=== PATIENT | male | born 1975 | race Caucasian/White ===

== ENCOUNTER → 2017-10-25 15:07 | Outpatient (CLI) | payer OTHER, SELFPAY ==
[2017-10-25 18:23] LABS: Anion Gap 10 (5-15); BUN 15 mg/dL (7-18); BUN/Creat Ratio 16.2 RATIO (10-20); Chloride 105 mmol/L (98-107); Cholesterol 169 mg/dL (200); Creatinine, Serum 0.93 mg/dL (0.70-1.30); EST Glomerular Filtration Rate 95 mL/min (>60); Est Glom Filt Rate - Afr Amer 115 mL/min (>60); Glucose 86 mg/dL (74-106); High Density Lipoprotein 41 mg/dL; Potassium 3.8 mmol/L (3.5-5.1); Sodium Level 139 mmol/L (136-145); Thyroid Stim Hormone (TSH) 1.23 uIU/mL (0.358-3.74); Triglycerides 217 mg/dL; Very Low Density Lipoprotein 43 mg/dL (5-40)
== END ==
PROVIDERS: Family Provider Family Medicine; PCP Family Medicine; Visit Provider Family Medicine
DX: Z00.00 Encounter for general adult medical examination without abnormal findings (principal)
CPT/HCPCS: 36415; 80048; 80061; 84443

== ENCOUNTER → 2020-06-22 10:04 | Outpatient (CLI) | payer OTHER, SELFPAY ==
--- NOTE | 2020-06-22 10:20 | RAD_ITS ---
STUDY: X-RAY - CERVICAL SPINE REASON FOR EXAM: Male, 45 years old. PAIN, NKI, N/T LEFT ARM INTO FINGERS TECHNIQUE: 5 view(s) of the cervical spine were obtained including oblique views. COMPARISON: None FINDINGS: Normal anterior atlantoaxial articulation. Normal odontoid process. There is straightening of the normal cervical lordosis. Normal vertebral bodies and endplates. Normal disc space heights. Normal visualized intervertebral neuroforamina. The soft tissue structures are unremarkable. RAD/Cerv Spine 4 or 5 Views IMPRESSION: Straightening of the normal cervical lordosis. Electronically Signed: Denver Kirby, at 10:25 EST , Service support ,
== END ==
PROVIDERS: PCP Family Medicine; Referring Provider Chiropractor; Visit Provider Chiropractor
DX: M54.12 Radiculopathy, cervical region (principal)
CPT/HCPCS: 72050

== ENCOUNTER → 2022-03-14 | Outpatient (CLI) | payer OTHER, SELFPAY ==
--- NOTE | 2022-03-14 13:58 | RAD_ITS ---
EXAM: XR CERVICAL SPINE, 4 OR 5 VIEWS CLINICAL INDICATION: NECK PAIN TECHNIQUE: Frontal, lateral and bilateral oblique views of the cervical spine. This report was created using [employer] report generation technology. COMPARISON: None. FINDINGS: VERTEBRAE: Unremarkable. Preserved vertebral body height. No acute fracture. No spondylolisthesis. Preservation of the normal cervical lordosis. No significant facet arthropathy. DISC SPACES: Unremarkable. Disc spaces are maintained. SOFT TISSUES: Unremarkable. No prevertebral soft tissue widening. LUNG APICES: Clear. RAD/Cerv Spine 4 or 5 Views IMPRESSION: No evidence of acute fracture or spondylolisthesis. Electronically Signed: Ricky Alexis MD at 15:31 EDT ,
== END | disposition home or self-care (01) ==
LOC: MTRAD 13:57
PROVIDERS: PCP Family Medicine; Referring Provider Family Medicine; Visit Provider Family Medicine
DX: M54.2 Cervicalgia (principal)
CPT/HCPCS: 72050

== ENCOUNTER 2024-07-22 12:58 | Emergency (ER) | payer OTHER, SELFPAY ==
[2024-07-22 12:59] VITALS: BP 130/83; PULSE 84; RESP 16; TEMP 36.8; O2SAT 100; BMI 36.2
--- NOTE | 2024-07-22 13:11 | EKG12_ITS ---
Test Reason : CP Blood Pressure : */* mmHG Vent. Rate : 82 BPM Atrial Rate : 82 BPM P-R Int : 152 ms QRS Dur : 88 ms QT Int : 378 ms P-R-T Axes : 56 66 39 degrees QTcB Int : 441 ms Normal sinus rhythm Normal ECG Confirmed by JEFF PIZANO, KEVIN ([id number]), film editor supervisor ЮЛИЯ LAMA ([id number]) on 07/30/2024 6:38:33 AM Referred By: KAIDEN/STEPHANIE Confirmed By: KEVIN AGUILAR MD
[2024-07-22 13:19] LABS: Absolute Lymphocyte Count 0.88 X10^3/uL (0.83-4.51); Absolute Neutrophil Count 3.4 X10^3/uL (2.0-7.7); Basophil# 0.05 X10^3/uL; Basophil% 0.9 % (0-1); Eosinophil# 0.08 X10^3/uL; Eosinophils% 1.5 % (0-5); Hemoglobin 15.5 g/dL (13.0-16.5); Lymphocyte # 0.88 X10^3/ul (0.83-4.51); Lymphocyte % 16.6 % (19-41); Mean Corp Hgb Conc 34.4 g/dL (32-36); Mean Corpuscular Hgb 31.9 pg (27.0-32.0); Mean Corpuscular Volume 92.6 fL (80-94); Mean Platelet Vol. 10.2 fl (6.2-12.0); Monocyte% 16.9 % (0-10); NRBC Flagged by Analyzer 0 % (0-5); Neutrophil # 3.37 X10^3/uL (2.7-7.7); Neutrophil % 63.5 % (47-70); Platelet Count 203 K/mm3 (150-450); RBC Distribution Width CV 13.3 % (11.6-14.6); RBC Distribution Width SD 45.3 fl (35.1-43.9); Red Blood Count 4.86 M/mm3 (4.6-6.2); White Blood Count 5.3 K/mm3 (4.4-11.0)
--- NOTE | 2024-07-22 13:36 | ED.VIS.CHEST ---
HPI History of Present Illness Chief Complaint: Chest Pain Informant: patient Onset/Context/Timing Onset: Weeks Activity at onset: gradual Timing: Continuous Quality: Positive for Dull Location: Substernal Current Severity: Mild Maximum Severity: Mild Worsened By: Exertion Relieved By: Rest Associated Symptoms: Positive for Dyspnea; Negative for Nausea, Vomiting, Diaphoresis, Cough, Fever, Lightheadedness, Acid Reflux or Palpitations Narrative Narrative: 49-year-old male no stated past medical history other than a bunch of Ortho pediatric surgeries on his shoulders and knees. States the last 3 weeks she has had constant midsternal chest pain. Denies any radiation. States he does get exertionally short of breath. He has no known cardiac history. He is never had a heart catheter or stress test. No history of DVT or PE or risk factors. No hemoptysis. No pleuritic nature to the pain. No leg pain or swelling. The chest pain does not radiate. He has no radiation to his neck back or jaw. No nausea or diaphoresis. Prior Similar Symptoms: No Recent Illness/Hospitalization: No CVD Risk Factors: Negative for Hypertension, Diabetes, Hypercholesterolemia, Family History 1' </=55 or Smoking PE Risk Factors: Negative for Recent Travel/Surgery, Recent Immobilization, Prior DVT or PE, Cancer or OCP + Smoking + >/=35 TAD Risk Factors: Positive for Marfan's Syndrome [facility] Medical History Lumbar strain No active medical problems Home Medications ?Medication ?Instructions ?Recorded ?Last Taken ?Type fluoxetine 20 mg capsule 20 mg PO DAILY 09/17/13 Unknown History Allergy/AdvReac Type Severity Reaction Status Date / Time Penicillins Allergy Other Verified 07/22/24 12:59 Surgical History History of hernia repair History of knee surgery History of shoulder surgery Social History Smoking Status: Former smoker ROS ROS ED ROS Narrative Chest pain. Exertional dyspnea. Constitutional Constitutional ED: Denies chills or fever(s) Eyes Eyes: Reports none ENT ENT ED: Denies ear pain Cardiovascular Cardiovascular: Reports chest pain Respiratory/Chest Respiratory/Chest: Reports dyspnea on exertion Gastrointestinal Gastrointestinal: Denies abdominal pain Genitourinary Genitourinary ED: Denies dysuria or hematuria Musculoskeletal Musculoskeletal: Denies arthralgias Integumentary Denies abscess Neurologic Neurologic: Denies headache(s) Psychiatric Psychiatric: Denies anxiety or depression Endocrine Endocrinology: Denies cold intolerance Hematologic/Lymphatic Hematologic/Lymphatic: Denies easy bleeding Allergic/Immunologic Allergic/Immunologic ED: Denies mouth swelling EXAM Physical Exam Narrative Exam Narrative: 49-year-old male vital signs are stable. Pulse ox 100% on room air no signs hypoxia. He is in no distress. He sitting upright in bed. H EENT exam pupils round reactive light. Moist mucous membranes. Neck nontender no JVD. Lungs clear to auscultation bilaterally. Heart regular rate and rhythm rate about 80. No murmurs. Chest wall is nontender there is no reproducible pain. There is no ecchymosis or bruising on his chest wall. No bony deformity. No crepitance. Abdomen is soft nontender. Moving all 4 extremities. Nontender no edema. No cords. 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 Dorsi plantarflexion intact. Equal symmetrical radial pulses. Back nontender. Neurologically is awake and alert no focal motor deficits. Const Vital Signs: 07/22/24 12:59 07/22/24 13:48 07/22/24 16:02 Temperature 98.3 F Temperature Source Oral Pulse Rate 84 69 Respiratory Rate 16 16 Blood Pressure 130/83 H 122/92 H Blood Pressure Mean 98 102 Pulse Ox 100 99 Oxygen Delivery Method Room Air Room Air Positive well nourished and well developed; Negative for cachectic, contractures or unkempt General Appearance ED: well developed and NAD; Negative for unkempt, cachectic, contractures or pallor Nutritional Appearance: Negative for cachectic HEENT Reports moist mucous membranes normocephalic and atraumatic; Negative for trauma or tenderness Eyes PERRL and EOMs intact bilaterally General Eye ED: Negative for pale conjunctiva or scleral icterus Neck no lymphadenopathy, supple and no JVD General: Negative for tenderness Chest Wall inspection of chest normal and palpation of chest normal Chest: Negative for tenderness Resp normal respiratory effort and clear to auscultation bilaterally Effort and Inspection: Negative for respiratory distress Auscultation: Negative for rales, rhonchi or wheezes Cardio regular rate, regular rhythm, S1 normal heart sound, S2 normal heart sound and no murmurs Rate: Negative for bradycardia or tachycardic Peripheral Pulses: pulses 2+ throughout and radial pulses present GI normal to inspection, nondistended, normoactive bowel sounds, soft to palpation, non-tender, non-distended and no masses Back/Spine no CVA tenderness and no thoracic nor lumbar tenderness Extremity normal to inspection General Extremety ED: Negative for edema, pulses abnormal or tenderness General Extremity: Negative for edema or pulses abnormal Neuro oriented x3 and CN's II-XII intact bilaterally Sensorium / Orientation: awake, alert, oriented to person and oriented to place; Negative for oriented to time Motor Exam: strength 5/5 throughout Psych mental status grossly normal Appearance: Negative for unkempt Skin no rashes or lesions noted and no wounds General Skin Exam: Negative for jaundice or pallor Rashes: No rashes noted Trauma: Negative for abrasion, laceration or puncture Heart Score History: Moderately Suspicious ECG: Normal Age: >45 - <65 years Risk Factors: 1 or 2 Risk Factors Troponin: </= Normal Limit Score: 3 MDM MDM MDM Narrative Medical decision making narrative: 49-year-old male with constant chest pain for 3 weeks. The chest pain history is not that concerning but his exertional dyspnea is. 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 He will undergo cardiac workup. He has no DVT or PE history or risk factors. Initially is exam is benign. Repeat exam patient is doing well at 2:15 PM. We went over all his test results. There is definitely a component of this chest pain that sounds more like reflux when he bends over or lies flat. I am concerned though because he has recently had exertional dyspnea. Patient does not want to stay to get inpatient stress test. Will do a 2-hour troponin. If that is okay I am trying to set him up for an outpatient stress test as soon as possible. I called his primary care physician Dr. Dee Dee Hall. She is aware of the plan. Again prefers admission as do I. And will follow patient up as an outpatient. Along with his stress test results. Repeat exam patient doing well at 353. Again he and I discussed further workup. He does not want to be admitted. I have scheduled him for an outpatient stress test for this coming Monday the at noon. He tells me he can make that. He knows to return if he is having increasing pain, shortness of breath or feeling worse. Will start a daily baby aspirin. He knows not doing evidently exertional everything else until the stress test. If he feels worse just to return to be admitted. Patient's is in the emergency department I spoke to her at length and him at length prior to discharge. She expresses similar concerns as I do. Patient does not want to be admitted and will be discharged to follow-up with his outpatient stress test. He knows to return if worse. History & Record Review Discussion w/independent historian: Patient Lab Data Attestation: I reviewed the patient's lab results. Lab results narrative: CBC normal. White count of 5. H&H 15 and 45. Platelets 203. Chemistries normal gap 6. BUN and creatinine of 13 and 1.1. Glucose 101. Initial troponin is less than 3. 2-hour troponin 4. Chest x-ray chronic changes. Labs: Laboratory Results - last 24 hr 07/22/24 07/22/24 13:11 15:11 WBC 5.3 RBC 4.86 Hgb 15.5 Hct 45.0 MCV 92.6 MCH 31.9 MCHC 34.4 RDW Std Deviation 45.3 H RDW Coeff of [place] 13.3 Plt Count 203 MPV 10.2 Immature Gran % (Auto) 0.600 Neut % (Auto) 63.5 Lymph % (Auto) 16.6 L [place] % (Auto) 16.9 H Eos % (Auto) 1.5 Baso % (Auto) 0.9 Absolute Neuts (auto) 3.4 Absolute Lymphs (auto) 0.88 Nucleated RBC % 0 Sodium 136 Potassium 3.9 Chloride 105 Carbon Dioxide 25.0 Anion Gap 6 BUN 13 Creatinine 1.13 Estim Creat Clear Calc 118.66 Est GFR (MDRD) Af Amer 89 Est GFR (MDRD) Non-Af 73 BUN/Creatinine Ratio 11.5 Glucose 101 Calcium 9.5 Troponin I High Sens < 3 L 4 Radiography Chest X-Ray - ED: 1 View, Normal, Heart, Lungs, Mediastinum, Bony Structures, No Acute Disease and Chronic Changes Diagnostic Testing: Clinical Impression(s) from Imaging Studies Chest X-Ray 07/22/24 13:49 IMPRESSION: Mild increased linear markings at the lung bases suggestive of linear atelectasis. Electronically Signed: Denver Kirby MD at 14:06 EST , Chest x-ray, portable, single view, interpreted by myself shows no acute abnormality. Normal cardiac silhouette, mediastinum and lung pastor. Rhythm Strip Rhythm Strip: Sinus Rhythm Rate: 82 Ectopy: None EKG Initial EKG: Attestation: I personally reviewed and interpreted this EKG as follows: Interpretation: Sinus Rhythm and No Acute Injury Pattern Comments: Normal sinus rhythm rate 82 no acute signs of ID or ischemia. Discharge Plan Triage Chief Complaint: Chest Pain ED Provider: Yoni Scott Dx/Rx/DC Orders Clinical Impression: Chest pain Instructions: ED Chest Pain, Uncertain Cause Prescriptions: No Action fluoxetine 20 MG capsule 20 mg PO DAILY Patient Comments: anxiety Primary Care Provider: Dee Dee Hall Referrals: Dee Dee Hall MD [Primary Care Provider] - As soon as possible Activity Restrictions/Additional Instructions: Uncertain the cause of your chest pain. Obviously will make sure this is not related to your heart. I have you scheduled for an outpatient stress test on Monday at noon. Come to the hospital and be here at 11:40 a.m. 20 minutes before your scheduled stress test to get registered and get ready. First floor diagnostic center. Just relax over the next couple days. Take a daily baby aspirin 81 mg. Each day until he get the stress test results back. If the stress test turns out to be normal you can stop the aspirin. Return to the emergency department if you are feeling worse. Increasing chest pain. Increasing shortness of breath. Print Language: Icelandic Disposition Disposition: Home, Self Care
[2024-07-22 13:39] LABS: Anion Gap 6 (5-15); BUN 13 mg/dL (7-18); BUN/Creat Ratio 11.5 RATIO (10-20); Calcium,Total 9.5 mg/dL (8.5-10.1); Chloride 105 mmol/L (98-107); Creatinine, Serum 1.13 mg/dL (0.70-1.30); EST Glomerular Filtration Rate 73 mL/min (>60); Est Glom Filt Rate - Afr Amer 89 mL/min (>60); Estimated Creatinine Clearance 118.66 ml/min; Glucose 101 mg/dL (74-106); Potassium 3.9 mmol/L (3.5-5.1); Sodium Level 136 mmol/L (136-145); Troponin-I HS (w/2H Reflex) < 3 pg/mL (3.0-78.0)
--- NOTE | 2024-07-22 13:49 | RAD_ITS ---
STUDY: X-RAY CHEST REASON FOR EXAM: Male, 49 years old. 3 week history of chest pain. TECHNIQUE: Single AP portable view of the chest. COMPARISON: None. FINDINGS: Mild increased linear markings at the lung bases slightly more prominent at the left lung base suggestive of bibasilar linear atelectasis. There is no demonstrated pleural abnormality. Normal size heart. Normal mediastinum and chary. Normal visualized pulmonary arteries. Normal visualized aortic arch and descending thoracic aorta. Normal visualized thoracic spine. Normal visualized ribs, clavicles, and shoulders. There is no demonstrated abnormality of the visualized soft tissue structures of the upper abdomen. RAD/Chest 1 View (Portable) IMPRESSION: Mild increased linear markings at the lung bases suggestive of linear atelectasis. Electronically Signed: Denver Kirby MD at 14:06 EST ,
[2024-07-22 15:15] LABS: Reflex Troponin-HS? (from REC) Y
[2024-07-22 15:47] LABS: Troponin-I HS 4 pg/mL (3.0-78.0)
[2024-07-22 16:02] VITALS: BP 122/92; PULSE 69; RESP 16; O2SAT 99
[2024-07-22] MEDS: Aspirin 81 MG TAB.CHEW 324 MG PO (16:07)
== END 2024-07-22 16:22 | disposition home or self-care (01) ==
PROVIDERS: Emergency Provider Emergency Medicine; PCP Family Medicine; Visit Provider Emergency Medicine
DX: R07.9 Chest pain, unspecified (principal); Z87.891 Personal history of nicotine dependence; R06.00 Dyspnea, unspecified
CPT/HCPCS: 71045; 80048; 84484; 85025; 93005; 99284; A4216

== ENCOUNTER → 2024-07-24 | Outpatient (CLI) | payer OTHER, SELFPAY ==
--- NOTE | 2024-07-24 15:01 | STRESSREP ---
Stress Test Report Exercise stress test. 49-year-old male with a history of chest pain Stress protocol: Resting EKG demonstrates normal sinus rhythm with a rate of 59 bpm resting blood pressure is 132/78 mmHg. The patient exercised according to the regular Eb protocol for a total duration of 6-1/2 minutes attaining a maximum heart rate of 137 bpm which was 80% of maximum predicted heart rate; the maximum workload was 8.4 metabolic equivalents. At rest there were no ST or T wave changes noted to suggest ischemia and at peak exercise upsloping ST changes only were noted which did not meet the criteria for ischemia. No clinical angina was noted the test was terminated due to the target heart rate being achieved/fatigue. The peak blood pressure was 152/70 mmHg. Rate-pressure product was 20,200. Conclusion: Exercise stress test with no EKG criteria for ischemia at a moderate workload.
== END | disposition home or self-care (01) ==
PROVIDERS: PCP Family Medicine; Referring Provider Family Medicine; Visit Provider Family Medicine
DX: R06.09 Other forms of dyspnea (principal)
CPT/HCPCS: 93017

== ENCOUNTER → 2025-01-15 | Outpatient (CLI) | payer OTHER, SELFPAY ==
[2025-01-15 15:12] LABS: Hematocrit 43.8 % (40-54); Hemoglobin 15.0 g/dL (13.0-16.5); Immature Granulocytes Count 0.020 X10^3/uL (0.0-0.0); Mean Corp Hgb Conc 34.2 g/dL (32-36); Mean Corpuscular Volume 92.0 fL (80-94); Mean Platelet Vol. 10.4 fl (6.2-12.0); NRBC Flagged by Analyzer 0 % (0-5); Platelet Count 266 K/mm3 (150-450); RBC Distribution Width CV 13.2 % (11.6-14.6); RBC Distribution Width SD 45.1 fl (35.1-43.9); Red Blood Count 4.76 M/mm3 (4.6-6.2); White Blood Count 6.8 K/mm3 (4.4-11.0)
[2025-01-15 16:05] LABS: AST(SGOT) 25 U/L (<=37); Alanine Aminotransfer ALT/SGPT 19 U/L (<=46); Albumin, Serum 4.5 g/dL (3.5-5.0); Alkaline Phosphatase 57 U/L (40-129); Anion Gap 11 (5-15); BUN 14 mg/dL (4-19); BUN/Creat Ratio 14.4 RATIO (10-20); Calcium,Total 9.7 mg/dL (7.6-11.0); Carbon Dioxide 23.2 mmol/L (21.0-32.0); Chloride 105 mmol/L (98-108); Globulin 2.5 g/dL (2.2-4.2); Glucose 91 mg/dL (70-99); Potassium 4.0 mmol/L (3.3-5.1)
[2025-01-15 16:20] LABS: Vitamin B12 626 pg/mL (180-914); Vitamin D,25 Hydroxy 25.5 ng/mL (30-100)
--- OUTSIDE RECORDS SUMMARY | 2025-01-15 22:38 | XMS RPT_ITS | CCD ---
Author Organization [facility] Care Team Providers Care Business Transformation Manager Name Role Phone Rafael Dee Dee S Referring Unavailable Jolliff, Dee Dee S Primary Care Unavailable Curt Ren Attending Unavailable Jolliff, Dee Dee S Consulting Unavailable Jolliff, Dee Dee S Attending Unavailable Jolliff, Dee Dee S Referring Unavailable Jolliff, Dee Dee S Primary Care Unavailable Jolliff, Dee Dee S Primary Care Unavailable Yoni Scott Attending Unavailable Jolliff, Dee Dee S Referring Unavailable Jolliff, Dee Dee S Primary Care Unavailable Clifford Beard Attending Unavailable Jolliff, Dee Dee S Referring Unavailable Abilio Quesada Attending Unavailable Jolliff, Dee Dee S Primary Care Unavailable Allergies Allergy Classification Reported Allergen(s) Allergy Type Date of Onset Reaction(s) Facility (1 source) Penicillins Allergy to substance 05-09-[address] [facility] Work Phone: (1 source) Penicillins Drug allergy (disorder) 07-22-[address] [facility] Repository Medications Current Medications Medication Drug Class(es) Dates Sig (Normalized) Sig (Original) FLUoxetine 20 mg oral capsule (1 source) Serotonin Reuptake Inhibitor Start: 09-17-2013 take 20 mg by mouth once daily Fluoxetine Active 20 MG PO DAILY September 17, 2013 12:00am Problems Problem Classification Problem Date Documented Da te Episodic/Chronic Nonspecific chest pain (1 source) Chest pain, unspecified; Translations: [Chest pain, unspecified] Onset: 08-14-2024 Episodic Other lower respiratory disease (2 sources) Other forms of dyspnea; Translations: [Other forms of dyspnea] Onset: 08-15-2024 Episodic Results Test Name Value Interpretation Reference Range Facil ity Stress Reporton 07-24-2024 Stress Report [facility] [place] [address] MR#: [id number] Acct: [id number] Name: TINO HERNANDEZ Rep #: [id number] : 1975 49 From: Curt Ren MD Primary Care: Dr. Dee Dee Hall MD Status: [facility] Referring Dr: Dee Dee Hall MD Sex: M C Stress Test Report Exercise stress test. 49-year-old male with a history of chest pain Stress protocol: Resting EKG demonstrates normal sinus rhythm with a rate of 59 bpm resting blood pressure is 132/78 mmHg. The patient exercised according to the regular Eb protocol for a total duration of 6-1/2 minutes attaining a maximum heart rate of 137 bpm which was 80% of maximum predicted heart rate; the maximum workload was 8.4 metabolic equivalents. At rest there were no ST or T wave changes noted to suggest ischemia and at peak exercise upsloping ST changes only were noted which did not meet the criteria for ischemia. No clinical angina was noted the test was terminated due to the target heart rate being achieved/fatigue. The peak blood pressure was 152/70 mmHg. Rate-pressure product was 20,200. Conclusion: Exercise stress test with no EKG criteria for ischemia at a moderate workload. 07/24/24 1502 Date Curt Ren MD CC: Dr. Dee Dee Hall MD Date Dictated: 07/24/24 1501 Date Transcribed: 07/24/24 1501 Process Stripper: CO Signed Normal [facility] 12 Lead EKGon 07-22-[address] [facility] Cardiovascular Services [address] [place] [address] 12 Lead EKG 07/22/24 1304 MR#: [id number] Acct: [id number] Name: TINO HERNANDEZ Rep #: [id number] : 1975 49 From: Milka Cheema MD Attending Dr: Status: DEP ER Ordering Dr: Yoni Scott MD Date: 07/22/24 Location: ED Sex: M C Admitted: Test Reason : CP Blood Pressure : */* mmHG Vent. Rate : 82 BPM Atrial Rate : 82 BPM P-R Int : 152 ms QRS Dur : 88 ms QT Int : 378 ms P-R-T Axes : 56 66 39 degrees QTcB Int : 441 ms Normal sinus rhythm Normal ECG Confirmed by JEFF PIZANO, KEVIN ([id number]), rewrite editor DAINA ЮЛИЯ ([id number]) on 07/30/2024 6:38:33 AM Referred By: JW/TB Confirmed By: KEVIN CHEEMA MD 07/30/24637 Date Milka Cheema MD CC: Dr. Dee Dee Hall MD; Dr. Yoni Scott MD Signed Normal [facility] Basic Metabolic Profile (BMP )on 07-22-2024 BUN/CRE 11.5 RATIO Normal 04-[address] [facility] Comment on above: Order Comment: 1 Y Performed By: #### L 501.5425, L100.0100, L500.2500 #### [facility] [address] [place], [address] CA,Total 9.5 mg/dL Normal 8.5-10.[address] [facility] Comment on above: Order Comment: 1 Y Performed By: #### L 501.5425, L100.0100, L500.2500 #### [facility] [address] [place], [address] Chloride [Moles/Vol] 105 mmol/L Normal 98-[address] [facility] Comment on above: Order Comment: 1 Y Performed By: #### L 501.5425, L100.0100, L500.2500 #### [facility] [address] [place], [address] CO2 [Moles/Vol] 25.0 mmol/L Normal 21.0-32.[address] [facility] Comment on above: Order Comment: 1 Y Performed By: #### L 501.5425, L100.0100, L500.2500 #### [facility] [address] [place], [address] Creatinine [Mass/Vol] 1.13 mg/dL Normal 0.70-1.[address] [facility] Comment on above: Order Comment: 1 Y Result Comment: The validity of the calculated GFR GFRAA in patients over 70 years has not been determined. Clinical correlation is essential. Performed By: #### L 501.5425, L100.0100, L500.2500 #### [facility] [address] [place], [address] ECRCL 118.66 ml/min Normal [facility] Comment on above: Order Comment: 1 Y Performed By: #### L 501.5425, L100.0100, L500.2500 #### [facility] [address] [place], [address] EST GFR - AA 89 mL/min Normal >[address] [facility] Comment on above: Order Comment: 1 Y Result Comment: Afri can Macedonian GFR Calc Performed By: #### L 501.5425, L100.0100, L500.2500 #### [facility] [address] [place], [address] GAP 6 Normal 5-[address] [facility] Comment on above: Order Comment: 1 Y Performed By: #### L 501.5425, L100.0100, L500.2500 #### [facility] [address] [place], [address] GFR/1.73 sq M.predicted among non-blacks MDRD (S/P/Bld) [Vol rate/Area] 73 mL/min/{1.73_m2} Normal >[address] [facility] Comment on above: Order Comment: 1 Y Result Comment: Non- GFR Calc Performed By: #### L 501.5425, L100.0100, L500.2500 #### [facility] [address] [place], [address] Glucose [Mass/Vol] 101 mg/dL Normal 74-106 [facility] [place] Comment on above: Order Comment: 1 Y Result Comment: Fast ing Glucose result from 100 to 125 mg/dL suggests IMPAIRED HOMEOSTASIS per A.D.A. criteria. Performed By: #### L 501.5425, L100.0100, L500.2500 #### [facility] [address] [place], [address] Potassium [Moles/Vol] 3.9 mmol/L Normal 3.5-5.[address] [facility] Comment on above: Order Comment: 1 Y Performed By: #### L 501.5425, L100.0100, L500.2500 #### [facility] [address] [place], [address] Sodium [Moles/Vol] 136 mmol/L Normal 136-145 [facility] Comment on above: Order Comment: 1 Y Performed By: #### L 501.5425, L100.0100, L500.2500 #### [facility] [address] [place], [address] Urea nitrogen [Mass/Vol] 13 mg/dL Normal 7-[address] [facility] Comment on above: Order Comment: 1 Y Performed By: #### L 501.5425, L100.0100, L500.2500 #### [facility] [address] [place], [address] CBC W/Diff, Automatedon - 0-2024 Absolute Lymph 0.88 X10 3/uL Normal 0.83-4.[address] [facility] Comment on above: Performed By: #### L 501.5425, L100.0100, L500.2500 #### [facility] [address] [place], [address] Absolute Neut 3.4 X10 3/uL Normal 2.0-7.[address] [facility] Comment on above: Performed By: #### L 501.5425, L100.0100, L500.2500 #### [facility] [address] [place], [address] Basophils/100 WBC (Bld) 0.9 % Normal 0-[address] [facility] Comment on above: Performed By: #### L 501.5425, L100.0100, L500.2500 #### [facility] [address] [place], [address] Eosinophils/100 WBC (Bld) 1.5 % Normal 0-[address] [facility] Comment on above: Performed By: #### L 501.5425, L100.0100, L500.2500 #### [facility] [address] [place], [address] Erythrocyte distribution width (RBC) [Ratio] 13.3 % Normal 11.6-14.[address] [facility] Comment on above: Performed By: #### L 501.5425, L100.0100, L500.2500 #### [facility] [address] [place], [address] Hematocrit (Bld) [Volume fraction] 45.0 % Normal 40-[address] [facility] Comment on above: Performed By: #### L 501.5425, L100.0100, L500.2500 #### [facility] [address] [place], [address] Hemoglobin (Bld) [Mass/Vol] 15.5 g/dL Normal 13.0-16.[address] [facility] Comment on above: Performed By: #### L 501.5425, L100.0100, L500.2500 #### [facility] [address] [place], [address] IG% 0.600 Normal 0.0-0.[address] [facility] Comment on above: Result Comment: IG% - Immature Granulocytes (promyelocytes, myelocytes and metamyelocytes) > 1% indicates that a LEFT SHIFT is Present. Performed By: #### L 501.5425, L100.0100, L500.2500 #### [facility] [address] [place], [address] Lymphocytes/100 WBC (Bld) 16.6 % Low 19-[address] [facility] Comment on above: Performed By: #### L 501.5425, L100.0100, L500.2500 #### [facility] [address] [place], [address] MCH (RBC) [Entitic mass] 31.9 pg Normal 27.0-32.[address] [facility] Comment on above: Performed By: #### L 501.5425, L100.0100, L500.2500 #### [facility] [address] [place], [address] MCHC (RBC) [Mass/Vol] 34.4 g/dL Normal 32-[address] [facility] Comment on above: Performed By: #### L 501.5425, L100.0100, L500.2500 #### [facility] [address] [place], [address] MCV (RBC) [Entitic vol] 92.6 fL Normal 80-[address] [facility] Comment on above: Performed By: #### L 501.5425, L100.0100, L500.2500 #### [facility] [address] [place], [address] Monocytes/100 WBC (Bld) 16.9 % High 0-[address] [facility] Comment on above: Performed By: #### L 501.5425, L100.0100, L500.2500 #### [facility] [address] [place], [address] Neutrophils/100 WBC (Bld) 63.5 % Normal 47-[address] [facility] Comment on above: Performed By: #### L 501.5425, L100.0100, L500.2500 #### [facility] [address] [place], [address] Nucleated RBC (Bld) [#/Vol] 0 10*3/uL Normal 0-[address] [facility] Comment on above: Performed By: #### L 501.5425, L100.0100, L500.2500 #### [facility] [address] [place], [address] Platelet mean volume (Bld) [Entitic vol] 10.2 fL Normal 6.2-12.[address] [facility] Comment on above: Performed By: #### L 501.5425, L100.0100, L500.2500 #### [facility] [address] [place], [address] Platelets (Bld) [#/Vol] 203 10*3/uL Normal 150-[address] [facility] Comment on above: Performed By: #### L 501.5425, L100.0100, L500.2500 #### [facility] [address] [place], [address] RBC (Bld) [#/Vol] 4.86 10*6/uL Normal 4.6-6.2 [facility] Comment on above: Performed By: #### L 501.5425, L100.0100, L500.2500 #### [facility] [address] [place], [address] RDW SD 45.3 fl High 35.1-43.[address] [facility] Comment on above: Performed By: #### L 501.5425, L100.0100, L500.2500 #### [facility] [address] [place], [address] WBC (Bld) [#/Vol] 5.3 10*3/uL Normal 4.4-11.0 [facility] [place] Comment on above: Performed By: #### L 501.5425, L100.0100, L500.2500 #### [facility] [address] [place], [address] Chest 1 View (Portable)on Chest 1 View (Portable) [facility] Imaging Services [address] [place] [address] Chest 1 View (Portable) MR#: [id number] Acct: [id number] Name: TINO HERNANDEZ Rep #: [id number] : 1975 M 49 From: Denver carr MD PCP: Dr. Dee Dee Hall MD Status: REG ER Study: Chest 1 View (Portable) Date of Exam: 07/22/24 Exam# [id number] Ordering Dr: Yoni Scott MD [id number] STUDY: X-RAY CHEST REASON FOR EXAM: Male, 49 years old. 3 week history of chest pain. TECHNIQUE: Single AP portable view of the chest. COMPARISON: None. FINDINGS: Mild increased linear markings at the lung bases slightly more prominent at the left lung base suggestive of bibasilar linear atelectasis. There is no demonstrated pleural abnormality. Normal size heart. Normal mediastinum and chary. Normal visualized pulmonary arteries. Normal visualized aortic arch and descending thoracic aorta. Normal visualized thoracic spine. Normal visualized ribs, clavicles, and shoulders. There is no demonstrated abnormality of the visualized soft tissue structures of the upper abdomen. RAD/Chest 1 View (Portable) IMPRESSION: Mild increased linear markings at the lung bases suggestive of linear atelectasis. Electronically Signed: Denver Kirby MD at 14:06 EST , CC: Dr. Dee Dee Hall MD; Dr. Yoni Scott MD Process Stripper: Signed Normal [facility] Emergency Department Summary on 07-22-2024 Emergency Department Summary [facility] Medical Records Department [address] [place] [address] Emergency Department Summary 07/22/24 MR#: [id number] Acct: [id number] Name: TINO HERNANDEZ Rep #: [id number] : 1975 49 From: Yoni Scott MD PCP: Dr. Dee Dee Hall MD Status:REG ER Location: ED HPI History of Present Illness Chief Complaint: Chest Pain Informant: patient Onset/Context/Timing Onset: Weeks Activity at onset: gradual Timing: Continuous Quality: Positive for Dull Location: Substernal Current Severity: Mild Maximum Severity: Mild Worsened By: Exertion Relieved By: Rest Associated Symptoms: Positive for Dyspnea; Negative for Nausea, Vomiting, Diaphoresis, Cough, Fever, Lightheadedness, Acid Reflux or Palpitations Narrative Narrative: 49-year-old male no stated past medical history other than a bunch of Ortho pediatric surgeries on his shoulders and knees. States the last 3 weeks she has had constant midsternal chest pain. Denies any radiation. States he does get exertionally short of breath. He has no known cardiac history. He is never had a heart catheter or stress test. No history of DVT or PE or risk factors. No hemoptysis. No pleuritic nature to the pain. No leg pain or swelling. The chest pain does not radiate. He has no radiation to his neck back or jaw. No nausea or diaphoresis. Prior Similar Symptoms: No Recent Illness/Hospitalizati on: No CVD Risk Factors: Negative for Hypertension, Diabetes, Hypercholesterolemia, Family History 1' or Smoking PE Risk Factors: Negative for Recent Travel/Surgery, Recent Immobilization, Prior DVT or PE, Cancer or OCP + Smoking + >/=35 TAD Risk Factors: Positive for Marfan's Syndrome [facility] Medical History Lumbar strain No active medical problems Home Medications ???Medication ???Instructions ???Recorded ???Last Taken ???Type fluoxetine 20 mg capsule 20 mg PO DAILY 09/17/13 Unknown History Allergy/AdvReac Type Severity Reaction Status Date / Time Penicillins Allergy Other Verified 07/22/24 12:59 Surgical History History of hernia repair History of knee surgery History of shoulder surgery Social History Smoking Status: Former smoker ROS ROS ED ROS Narrative Chest pain. Exertional dyspnea. Constitutional Constitutional ED: Denies chills or fever(s) Eyes Eyes: Reports none ENT ENT ED: Denies ear pain Cardiovascular Cardiovascular: Reports chest pain Respiratory/Chest Respiratory/Chest: Reports dyspnea on exertion Gastrointestinal Gastrointestinal: Denies abdominal pain Genitourinary Genitourinary ED: Denies dysuria or hematuria Musculoskeletal Musculoskeletal: Denies arthralgias Integumentary Denies abscess Neurologic Neurologic: Denies headache(s) Psychiatric Psychiatric: Denies anxiety or depression Endocrine Endocrinology: Denies cold intolerance Hematologic/Lymphatic Hematologic/Lymphatic : Denies easy bleeding Allergic/Immunologic Allergic/Immunologic ED: Denies mouth swelling EXAM Physical Exam Narrative Exam Narrative: 49-year-old male vital signs are stable. Pulse ox 100% on room air no signs hypoxia. He is in no distress. He sitting upright in bed. H EENT exam pupils round reactive light. Moist mucous membranes. Neck nontender no JVD. Lungs clear to auscultation bilaterally. Heart regular rate and rhythm rate about 80. No murmurs. Chest wall is nontender there is no reproducible pain. There is no ecchymosis or bruising on his chest wall. No bony deformity. No crepitance. Abdomen is soft nontender. Moving all 4 extremities. Nontender no edema. No cords. 5 out of 5 bi consultant strength. Dorsi plantarflexion intact. Equal symmetrical radial pulses. Back nontender. Neurologically is awake and alert no focal motor deficits. Const Vital Signs: 07/22/24 12:59 07/22/24 13:48 07/22/24 16:02 Temperature 98.3 F Temperature Source Oral Pulse Rate 84 69 Respiratory Rate 16 16 Blood Pressure 130/83 H 122/92 H Blood Pressure Mean 98 102 Pulse Ox 100 99 Oxygen Delivery Method Room Air Room Air Positive well nourished and well developed; Negative for cachectic, contractures or unkempt General Appearance ED: well developed and NAD; Negative for unkempt, cachectic, contractures or pallor Nutritional Appearance: Negative for cachectic HEENT Reports moist mucous membranes normocephalic and atraumatic; Negative for trauma or tenderness Eyes PERRL and EOMs intact bilaterally General Eye ED: Negative for pale conjunctiva or scleral icterus Neck no lymphadenopathy, supple and no JVD General: Negative for tenderness Chest Wall inspection of chest normal and palpation of ch (more content not included)... Normal [facility] L501.4020on 07-22-2024 TROPONIN-I HS 4 pg/mL Normal 3.0-78.[address] [facility] Comment on above: Result Comment: Plea se Note: New Test Units and Gender Specific Reference Ranges. For more information see Policy Stat Procedure [place] High Sensitivity Troponin (TNIH) and attachments. Performed By: #### L 501.4020 #### [facility] [address] [place], [address] L501.5425on 07-22-2024 TROPONIN-I HS < 3 Low 3.0-78.[address] [facility] Comment on above: Order Comment: 1 Y Result Comment: Plea se Note: New Test Units and Gender Specific Reference Ranges. For more information see Policy Stat Procedure [place] High Sensitivity Troponin (TNIH) and attachments. Performed By: #### L 501.5425, L100.0100, L500.2500 #### [facility] [address] [place], [address] Urgent Care Visit Reporton 1 07-11-2023 Urgent Care Visit Report [facility] [address] [facility], [address] [place] [address] OFFICE VISIT Date of Service: 05/11/24 MR#: [id number] Acct: [id number] Name: TINO HERNANDEZ Rep #: [id number] : 1975 Provider: VAIBHAV Lopez Age/Sex: 49/M [place] [facility] Status: Signed Intake Vital Signs 07/01/23 11:45 05/11/24 11:03 Height 6 ft 4 in 6 ft 4 in Weight: 281 lb 2 oz 290 lb BMI 34.2 35.3 BP 120/82 H 128/72 H Blood Pressure Location Lt brachial Rt brachial Position Sitting Sitting Respiration 16 18 Pulse 96 68 Pulse Source NIBP Monitor Temp 98.7 F 97.7 F L Temp Source Temporal Temporal Pulse Oximetry (%) 100 97 Oxygen Delivery Method room air room air Intake Visit Reasons: SINUS/PAIN/CONGESTION Media Developer Required: No Is patient in pain?: No Allergies Penicillins Allergy (Verified 05/11/24 11:01) Other Medications ???Medication ???Instructions ???Recorded ???Confirmed ???Type fluoxetine 20 mg capsule 20 mg PO DAILY 09/17/13 05/11/24 History Nurse's Note: States for about a wek he has had sinus pressure which is getting worse. Denies ear pain, cough, sob, or chest congestion. Has yellowish green snot. Has been using aspirin, and elderberry. PFSH Medical History Lumbar strain No active medical problems Surgical History History of hernia repair History of knee surgery History of shoulder surgery Social History Smoking Status: Former smoker HPI HPI Details: TINO HERNANDEZ, is a 49 M who presents to the office today for evaluation of sinus congestion. Patient states that he has been experiencing significant congestion over the past week since helping his son clean out a basement where there was mold. He states that he has noticed symptoms of congestion, ear pain, cough, SOB, and nasal discharge. He denies symptoms of wheezing, sore throat, headache, fever, and dizziness. Patient has tried aspirin and elderberry as instructed by his with little success. He states that he does have difficulty with seasonal allergies but denies current treatment for this issue. Patient denies contact with other individuals with similar symptoms. ROS Const Constitutional: No chills or fever(s) ENT ENT: Positive for ear or mastoid pain, nasal congestion, sinus pressure, sinus pain and nasal discharge; No ear discharge, post nasal drip or sore throat Resp Respiratory: Positive for cough and shortness of breath; No chest congestion, excessive phlegm production or wheezing Cardio Cardiology: No chest pain at rest, chest pain with exertion, dyspnea on exertion, irregular heart rhythm or palpitations Aller/Imm Allergy/Immunologic: No seasonal allergy symptoms or wheezing Exam Const General: cooperative and no acute distress HENMT Ears: external ears normal and TM's normal bilaterally Nose: nares normal, no nasal discharge and mucous membranes and turbinates abnormal boggy bilaterally and erythematous bilaterally Face and sinus: sinuses nontender Mouth: oral mucosae normal Throat: posterior oropharynx normal Eyes Conjunctivae: conjunctivae normal Sclera: sclerae normal Neck Lymphatic: no lymphadenopathy noted Resp Auscultation: Bilateral: Clear to Auscultation Cardio Rate: regular rate Rhythm: regular rhythm Heart Sounds: S1 normal and S2 normal Coding Level of Care Code New Pt Off vis,new,level 3 Patient Type New History Expanded Problem Focused Exam Expanded Problem Focused Medical Decision Making Low Complexity Diagnoses Sinus congestion R09.81 Assessment and Plan Assessment and Plan (1) Sinus congestion: Status: Acute Plan: Well appearing without signs of bacterial infection. Discussed conservative management for symptoms including use of OTC Zyrtec and Flonase. If persistent or worsening symptoms over the next 5-7 days patient should f/u with PCP or [facility] to r/o sinusitis. Patient voiced understanding and agreement with plan. 05/11/24 1313 Date Clifford Cardona Signature: Date (if applicable) CC: Normal [facility] Urgent Care Visit Reporton 0 09-11-2023 Urgent Care Visit Report [facility] [address], [address] [place] [address] OFFICE VISIT Date of Service: 09/11/23 MR#: [id number] Acct: [id number] Name: TINO HERNANDEZ Rep #: [id number] : 1975 Provider: VAIBHAV sEpana Age/Sex: 48/M [place] [facility] [place]: Signed Intake Vital Signs 07/01/23 11:45 09/11/23 13:55 Height 6 ft 4 in Weight: 281 lb 2 oz BMI 34.2 BP 120/82 H 110/76 Blood Pressure Location Lt brachial Lt brachial Position Sitting Sitting Respiration 16 14 Pulse 96 86 Pulse Source NIBP Monitor Temp 98.7 F 97.9 F Temp Source Temporal Temporal Pulse Oximetry (%) 100 98 Oxygen Delivery Method room air room air Intake Visit Reasons: LOWER BACK PAIN Chief Complaint: HILL/BA/ST/cough Allergies Penicillins Allergy (Verified 09/11/23 13:55) Other [facility] Medical History (Updated 09/11/23 @ 16:27 by VAIBHAV Ma) Lumbar strain No active medical problems Surgical History (Updated 07/01/23 @ 11:44 by Cathryn Bowers) History of hernia repair History of knee surgery History of shoulder surgery Social History Smoking Status: Former smoker HPI HPI Chief Complaint: HILL/BA/ST/cough Details: TINO HERNANDEZ, is a 48 M who presents to the office today for initial evaluation of low back pain. Patient notes yesterday morning while at his [employer] lifting an 8 foot plastic table to put away, describing bending at the waist and developing immediate moderate to severe aching discomfort the same. No caudal or radicular complaints at time of injury or since. No chest pain or shortness of breath or dyspnea on exertion or mid back pain. This morning he reported to his local chiropractor having had an adjustment and notes improvement in discomfort but not complete resolution. No phar-[id number] products taken to assist. No other associated symptoms and no other alleviating/aggravati ng factors. ROS Const Constitutional: No other (As above) Exam Const General: cooperative, healthy appearing and no acute distress Nutritional Appearance: average body habitus Orientation: alert, awake and oriented x3 HENMT Head: normal to inspection Ears: hearing grossly normal bilaterally and external ears normal Nose: external nose normal Chest Chest palpation inspection: normal inspection of the chest Resp Effort Inspection: normal respiratory effort and able to speak in complete sentences Cardio Rate: regular rate Pulses: radial pulses present GI Inspection: normal to inspection Palpation: soft Musc Thoracic/Lumbar Spine: thoracic and lumbar spine normal to inspection, straight leg raise negative bilaterally, pain with thoraco-lumbar ROM with forward flexion, with lateral flexion to the right, with lateral flexion to the left, with rotation to the right and with rotation to the left, paraspinal tenderness bilaterally in the mid lumbar and in the lower lumbar, no thoracic spinal tenderness and no lumbar spinal tenderness Skin General: no rashes or lesions noted Neuro General: patient alert, patient awake and patient oriented x3 Cognition: normal cognition Speech: speech normal Psych Appearance: grossly normal Mental Status: mental status grossly normal Mood: congruent mood Affect: normal affect Speech and Movement: speech and movement normal Attitude: cooperative Coding Level of Care Code Off vis,est,level 3 Diagnoses Lumbar strain S39.012A Assessment and Plan Assessment and Plan (1) Lumbar strain: Status: Acute Plan: Ibuprofen and Flexeril as prescribed today. Rest, ice applications, home range of motion x-rays as instructed today. Follow-up with PCP or orthopedics in 5 to 7 days should symptoms not improve, ED sooner should symptoms worsen or any other concerns develop. Patient states acknowledging understanding all the above. This note was generated with [email or web address] dictation software. It may contain incorrect words, spelling, and punctuation that were not noted in checking the note before signing. Medications: New ibuprofen 800 mg PO TID 30 tabs 0RF cyclobenzaprine 10 mg PO TID PRN 20 tabs 0RF muscle spasm 09/11/23 1628 Date Abilio Cardona Signature: Date (if applicable) CC: Normal [facility] Encounters Encounter Date Encounter Type Care Provider Facility Start: 07-24-2024 ambulatory [facility] [place] [facility] [place]: 07-24-2024 End: 07-24-2024 ambulatory Dee Dee Hall Facility:[facility] Start: 07-22-2024 End: 07-22-2024 Emergency department patient visit Dee Dee Hall Facility:[facility] Start: 05-11-2024 End: 05-11-2024 ambulatory Dee Dee Hall Facility:[facility] Start: 09-11-2023 End: 09-11-2023 ambulatory Dee Dee Flowersiff Facility:[facility] Start: 03-14-2022 End: 03-14-2022 ambulatory [facility] Work Phone: Start: 03-14-2022 End: 03-14-2022 Patient encounter procedure [facility] [place] Procedures Date Procedure Procedure Detail Performing Clinician Start: 03-14-2022 X-ray of cervical spine Payers Date Payer Category Payer Self-pay [id number] 2014 Unknown [id number] Unknown [id number] 2.16.8 [id number] Unknown [id number] 2.16.8 [id number] Unknown [id number] 2.16.8 [id number] Unknown [id number] 2.16.8 [id number] Unknown [id number] 2.16.8 [id number] Social History Date Type Detail Facility Start: 05-09-2016 Tobacco smoking stat [facility] Unknown if ever smoked [facility] Work Phone: Start: 1975 Sex Assigned At Male [facility] Work Phone: Evaluation note Note Date & Type Note Facility Evaluation note No assessment information availa ble [facility] Work Phone: Chief Complaint and Reason for Visit Chief Complaint NECK PAIN Advance Directives No Advanced Directives Records Found Advance Directive Response Recorded Date/ Time Advance Directives No May 09, 2016 9:25am Living Will No May 09 16 9:25am Power of [employer] No May 09, 2016 9:25am Summary Purpose Family History No Family History Records Found Additional Source Comments Goals (unrecognized section and content) Goals may be documented in a n alternate section (unrecognized sect ion and content) No Status Records Found INFORMATION SOURCE (unrecogn ized section and content) DATE CREATED AUTHOR 08/16/2024 [facility] FOR RECORDS PERTAINING TO PATIENTS WHO ARE OR HAVE BEEN ENROLLED IN A CHEMICAL DEPENDENCY/SUBSTANCEABUSE PROGRAM, SOME INFORMATION MAY BE OMITTED. This clinical summary was aggregated from multiple sources. Caution should be exercised in using it in the provision of clinical care. This summary normalizes information from multiple sources, and as a consequence, information in this document may materially change the coding, format and clinical context of patient data. In addition, data may be omitted in some cases. CLINICAL DECISIONS SHOULD BE BASED ON THE PRIMARY CLINICAL RECORDS. [facility] [employer] [facility]. provides no warranty or guarantee of the accuracy or completeness of information in this document.
--- OUTSIDE RECORDS SUMMARY | 2025-01-15 22:38 | XMS RPT_ITS | CCD ---
Author Organization [facility] Care Team Providers Care Rn Heart Name Role Phone Rafael Dee Dee S [...] source) Penicillins Allergy to substance 05-09-2016 Other [facility] Work Phone: (1 source) Penicillins Drug allergy (disorder) 07-22-2024 [facility] Repository Medications Current Medications Medication Drug Class(es) [...] Facil ity Stress Reporton 07-24-[address] [facility] [place] [address] [place] [address] MR#: [id number] Acct: [id number] Name: TINO HERNANDEZ Rep #: [id number] : 1975 49 From: Curt Ren MD Primary Care: Dr. Dee Dee Hall MD Status: [facility] Referring Dr: Dee Dee Hall MD [...] Dictated: 07/24/24 1501 Date Transcribed: 07/24/24 1501 Business Development Officer: [place] Signed Normal [facility] 12 Lead EKGon 07-22-2024 12 Lead EKG [facility] Cardiovascular Services [address] [place] [address] 12 Lead EKG 07/22/24 1304 MR#: [id number] Acct: [id number] Name: TINO HERNANDEZ Rep #: [id number] : 1975 49 From: Milka Cheema MD [...] Normal ECG Confirmed by JEFF PIZANO, KEVIN ([id number]), department editor DAINA ЮЛИЯ ([id number]) on 07/30/2024 6:38:33 AM Referred By: JW/TB Confirmed By: KEVIN CHEEMA MD 07/30/24637 Date Milka Cheema MD CC: Dr. Dee Dee Hall MD; Dr. Yoni Scott MD Signed Normal [facility] Basic Metabolic Profile (BMP )on 07-22-2024 BUN/CRE 11.5 RATIO Normal 04-21 [facility] Comment on above: Order Comment: 1 Y Performed By: #### L 501.5425, L100.0100, L500.2500 #### [facility] Laboratory [address] [place], [address] CA,Total 9.5 mg/dL Normal 8.5-10.1 [facility] Comment on above: Order Comment: 1 Y Performed By: #### L 501.5425, L100.0100, L500.2500 #### [facility] Laboratory [address] [place], [address] Chloride [Moles/Vol] 105 mmol/L Normal 98-107 [facility] Comment on above: Order Comment: 1 Y Performed By: #### L 501.5425, L100.0100, L500.2500 #### [facility] Laboratory [address] [place], [address] CO2 [Moles/Vol] 25.0 mmol/L Normal 21.0-32.0 [facility] Comment on above: Order Comment: 1 Y Performed By: #### L 501.5425, L100.0100, L500.2500 #### [facility] Laboratory [address] [place], [address] Creatinine [Mass/Vol] 1.13 mg/dL Normal 0.70-1.30 [facility] Comment on above: Order Comment: 1 Y Result Comment: The validity of the calculated GFR GFRAA in patients over 70 years has not been determined. Clinical correlation is essential. Performed By: #### L 501.5425, L100.0100, L500.2500 #### [facility] Laboratory [address] [place], [address] ECRCL 118.66 ml/min Normal [facility] Comment on above: Order Comment: 1 Y Performed By: #### L 501.5425, L100.0100, L500.2500 #### [facility] [address] [place], [address] EST GFR - AA 89 mL/min Normal >60 [facility] Comment on above: Order Comment: 1 Y Result Comment: Afri can Samoan GFR Calc Performed By: #### L 501.5425, L100.0100, L500.2500 #### [facility] Laboratory [address] [place], [address] GAP 6 Normal 5-15 [facility] Comment on above: Order Comment: 1 Y Performed By: #### L 501.5425, L100.0100, L500.2500 #### [facility] Laboratory [address] [place], [address] GFR/1.73 sq M.predicted among non-blacks MDRD (S/P/Bld) [Vol rate/Area] 73 mL/min/{1.73_m2} Normal >60 [facility] Comment on above: Order Comment: 1 Y Result Comment: Non- GFR Calc Performed By: #### L 501.5425, L100.0100, L500.2500 #### [facility] Laboratory [address] [place], [address] Glucose [Mass/Vol] 101 mg/dL Normal 74-106 [facility] Comment on above: Order Comment: 1 Y Result Comment: Fast ing Glucose result from 100 to 125 mg/dL suggests IMPAIRED HOMEOSTASIS per A.D.A. criteria. Performed By: #### L 501.5425, L100.0100, L500.2500 #### [facility] [address] [place], [address] Potassium [Moles/Vol] 3.9 mmol/L Normal 3.5-5.1 [facility] Comment on above: Order Comment: 1 Y Performed By: #### L 501.5425, L100.0100, L500.2500 #### [facility] Laboratory [address] [place], [address] Sodium [Moles/Vol] 136 mmol/L Normal 136-145 [facility] Comment on above: Order Comment: 1 Y Performed By: #### L 501.5425, L100.0100, L500.2500 #### [facility] [address] [place], [address] Urea nitrogen [Mass/Vol] 13 mg/dL Normal 7-18 [facility] Comment on above: Order Comment: 1 Y Performed By: #### L 501.5425, L100.0100, L500.2500 #### [facility] [address] [place], [address] CBC W/Diff, Automatedon - 0-2024 Absolute Lymph 0.88 X10 3/uL Normal 0.83-4.51 [facility] Comment on above: Performed By: #### L 501.5425, L100.0100, L500.2500 #### [facility] Laboratory [address] [place], [address] Absolute Neut 3.4 X10 3/uL Normal 2.0-7.7 [facility] Comment on above: Performed By: #### L 501.5425, L100.0100, L500.2500 #### [facility] Laboratory [address] [place], [address] Basophils/100 WBC (Bld) 0.9 % Normal 0-1 [facility] Comment on above: Performed By: #### L 501.5425, L100.0100, L500.2500 #### [facility] Laboratory [address] [place], [address] Eosinophils/100 WBC (Bld) 1.5 % Normal 0-5 [facility] Comment on above: Performed By: #### L 501.5425, L100.0100, L500.2500 #### [facility] Laboratory [address] [place], [address] Erythrocyte distribution width (RBC) [Ratio] 13.3 % Normal 11.6-14.6 [facility] Comment on above: Performed By: #### L 501.5425, L100.0100, L500.2500 #### [facility] [address] [place], [address] Hematocrit (Bld) [Volume fraction] 45.0 % Normal 40-54 [facility] Comment on above: Performed By: #### L 501.5425, L100.0100, L500.2500 #### [facility] Laboratory [address] [place], [address] Hemoglobin (Bld) [Mass/Vol] 15.5 g/dL Normal 13.0-16.5 [facility] Comment on above: Performed By: #### L 501.5425, L100.0100, L500.2500 #### [facility] [address] [place], [address] IG% 0.600 Normal 0.0-0.9 [facility] Comment on above: Result Comment: IG% - Immature Granulocytes (promyelocytes, myelocytes and metamyelocytes) > 1% indicates that a LEFT SHIFT is Present. Performed By: #### L 501.5425, L100.0100, L500.2500 #### [facility] [address] [place], [address] Lymphocytes/100 WBC (Bld) 16.6 % Low 19-41 [facility] Comment on above: Performed By: #### L 501.5425, L100.0100, L500.2500 #### [facility] [address] [place], [address] MCH (RBC) [Entitic mass] 31.9 pg Normal 27.0-32.0 [facility] Comment on above: Performed By: #### L 501.5425, L100.0100, L500.2500 #### [facility] [address] [place], [address] MCHC (RBC) [Mass/Vol] 34.4 g/dL Normal 32-36 [facility] Comment on above: Performed By: #### L 501.5425, L100.0100, L500.2500 #### [facility] [address] [place], [address] MCV (RBC) [Entitic vol] 92.6 fL Normal 80-94 [facility] Comment on above: Performed By: #### L 501.5425, L100.0100, L500.2500 #### [facility] Laboratory [address] [place], [address] Monocytes/100 WBC (Bld) 16.9 % High 0-10 [facility] Comment on above: Performed By: #### L 501.5425, L100.0100, L500.2500 #### [facility] Laboratory [address] [place], [address] Neutrophils/100 WBC (Bld) 63.5 % Normal 47-70 [facility] Comment on above: Performed By: #### L 501.5425, L100.0100, L500.2500 #### [facility] Laboratory [address] [place], [address] Nucleated RBC (Bld) [#/Vol] 0 10*3/uL Normal 0-5 [facility] Comment on above: Performed By: #### L 501.5425, L100.0100, L500.2500 #### [facility] [address] [place], [address] Platelet mean volume (Bld) [Entitic vol] 10.2 fL Normal 6.2-12.0 [facility] Comment on above: Performed By: #### L 501.5425, L100.0100, L500.2500 #### [facility] Laboratory [address] [place], [address] Platelets (Bld) [#/Vol] 203 10*3/uL Normal 150-450 [facility] Comment on above: Performed By: #### L 501.5425, L100.0100, L500.2500 #### [facility] Laboratory [address] [place], [address] RBC (Bld) [#/Vol] 4.86 10*6/uL Normal 4.6-6.2 [facility] Comment on above: Performed By: #### L 501.5425, L100.0100, L500.2500 #### [facility] [address] [place], [address] RDW SD 45.3 fl High 35.1-43.9 [facility] Comment on above: Performed By: #### L 501.5425, L100.0100, L500.2500 #### [facility] Laboratory [address] [place], [address] WBC (Bld) [#/Vol] 5.3 10*3/uL Normal 4.4-11.0 [facility] Comment on above: Performed By: #### L 501.5425, L100.0100, L500.2500 #### [facility] Laboratory [address] [place], [address] Chest 1 View (Portable)on Chest 1 View (Portable) [facility] Imaging Services [address] [place] [address] Chest 1 View (Portable) MR#: [id number] Acct: [id number] Name: TINO HERNANDEZ Rep #: [id number] : 1975 M 49 From: Denver carr MD PCP: Dr. Dee Dee Hall MD Status: REG ER Study: Chest 1 View (Portable) Date of Exam: 07/22/24 Exam# [id number] Ordering Dr: Yoni Scott MD [id number] STUDY: X-RAY CHEST REASON FOR EXAM: Male, [...] Dee Hall MD; Dr. Yoni Scott MD Business Development Officer: Signed Normal [facility] Emergency Department Summary on 07-22-[address] 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 No cords. 5 out of 5 human services program specialist strength. Dorsi plantarflexion intact. Equal symmetrical radial [...] of ch (more content not included)... Normal [facility] L501.4020on 07-22-2024 TROPONIN-I HS 4 pg/mL Normal 3.0-78.0 [facility] Comment on above: Result Comment: Plea se Note: New Test Units and Gender Specific Reference Ranges. For more information see Policy Stat Procedure [place] High Sensitivity Troponin (TNIH) and attachments. Performed By: #### L 501.4020 #### [facility] Laboratory [address] [place], [address] L501.5425on 07-22-2024 TROPONIN-I HS < 3 Low 3.0-78.0 [facility] Comment on above: Order Comment: 1 Y Result Comment: Plea se Note: New Test Units and Gender Specific Reference Ranges. For more information see Policy Stat Procedure [place] High Sensitivity Troponin (TNIH) and attachments. Performed By: #### L 501.5425, L100.0100, L500.2500 #### [facility] Laboratory [address] [place], [address] Urgent Care Visit Reporton 1 07-11-2023 Urgent Care Visit Report [facility] [address], [address] [place] [address] OFFICE VISIT Date of Service: 05/11/24 MR#: [id number] Acct: [id number] Name: TINO HERNANDEZ Rep #: [id number] : 1975 Provider: VAIBHAV Lopez Age/Sex: 49/M Location: [facility] Status: Signed Intake Vital Signs 07/01/23 [...] air room air Intake Visit Reasons: SINUS/PAIN/CONGESTION Technical Assistant Required: No Is patient in pain?: No [...] Cardona Signature: Date (if applicable) CC: Normal [facility] Urgent Care Visit Reporton 0 09-11-2023 Urgent Care Visit Report [facility] [address], [address] [place] [address] OFFICE VISIT Date of Service: 09/11/23 MR#: [id number] Acct: [id number] Name: TINO HERNANDEZ Rep #: [id number] : 1975 Provider: VAIBHAV Espana Age/Sex: 48/M Location: [facility] Status: Signed Intake Vital Signs 07/01/23 [...] Allergies Penicillins Allergy (Verified 09/11/23 13:55) Other [facility] Medical History (Updated 09/11/23 @ 16:27 by [...] Patient notes yesterday morning while at his yazidism lifting an 8 foot plastic table to [...] in discomfort but not complete resolution. No abpt-mob-teogdmj products taken to assist. No other associated [...] the above. This note was generated with [employer] dictation software. It may contain incorrect words, spelling, and punctuation that were not noted in checking the note before signing. Medications: New ibuprofen 800 mg PO TID 30 tabs 0RF cyclobenzaprine 10 mg PO TID PRN 20 tabs 0RF muscle spasm 09/11/23 1628 Date Abilio Cardona Signature: Date (if applicable) CC: Normal [facility] Encounters Encounter Date Encounter Type Care Provider Facility Start: 07-24-2024 ambulatory Dee Dee Hall Facility: [facility] Start: 07-24-2024 End: 07-24-2024 ambulatory Dee Dee Hall Facility:[facility] Start: 07-22-2024 End: 07-22-2024 Emergency department patient visit Dee Dee Hall Facility:[facility] Start: 05-11-2024 End: 05-11-2024 ambulatory Dee Dee Hall Facility:[facility] Start: 09-11-2023 End: 09-11-2023 ambulatory Dee Dee Flowersiff Facility:[facility] Start: 03-14-2022 End: 03-14-[address] [facility] Work Phone: Start: 03-14-2022 End: 03-14-2022 Patient encounter procedure [facility] [place] Procedures Date Procedure Procedure Detail Performing Clinician Start: 03-14-2022 X-ray of cervical spine Payers Date Payer Category Payer Self-pay [id number] 2014 Unknown [id number] Unknown [id number] 2.16.8 [id number] Unknown [id number] 2.16.8 [id number] Unknown [id number] 2.16.8 [id number] Unknown [id number] 2.16.8 [id number] Unknown [id number] 2.16.8 [id number] Social History Date Type Detail Facility Start: 05-09-2016 Tobacco smoking stat [facility] Unknown if ever smoked [facility] Work Phone: Start: 1975 Sex Assigned At Male [facility] Work Phone: Evaluation note Note Date & Type Note Facility Evaluation note No assessment information availa ble [facility] Work Phone: Chief Complaint and Reason for Visit Chief Complaint NECK PAIN Advance Directives No Advanced Directives Records Found Advance Directive Response Recorded Date/ Time Advance Directives No May 09, 2016 9:25am Living Will No May 09 16 9:25am Power of Refinery Operator Hel[employer] Cracking Unit No May 09, 2016 9:25am Summary Purpose Family History No Family History Records Found Additional Source Comments Goals (unrecognized section and content) Goals may be documented in a n alternate section (unrecognized sect ion and content) No Status Records Found INFORMATION SOURCE (unrecogn ized section and content) DATE CREATED AUTHOR 08/16/2024 [facility] FOR RECORDS PERTAINING TO PATIENTS WHO [...] BE BASED ON THE PRIMARY CLINICAL RECORDS. [facility] [employer] [facility]. provides no warranty or guarantee of the accuracy or completeness of information in this document.
== END | disposition home or self-care (01) ==
LOC: MFPLAB 12:27
PROVIDERS: PCP Family Medicine; Referring Provider Family Medicine; Visit Provider Family Medicine
DX: R53.83 Other fatigue (principal)
CPT/HCPCS: 36415; 80053; 82306; 82607; 84439; 84443; 85025